=== PATIENT | female | born 2000 | race Caucasian/White ===

== ENCOUNTER → 2024-01-03 07:12 | Outpatient (CLI) | payer OTHER, SELFPAY | PROVIDERS: Referring Provider Nurse Practitioner Family; Visit Provider Nurse Practitioner Family | DX: J45.909 Unspecified asthma, uncomplicated (principal) | CPT/HCPCS: 94060 ==

== ENCOUNTER → 2025-03-31 07:08 | Outpatient (CLI) | payer OTHER, SELFPAY ==
--- NOTE | 2025-03-31 07:11 | DI.MRI.S_ITS ---
PROCEDURE: MR SHOULDER LT WO CON
--- NOTE | 2025-03-31 07:12 | DI.CT.S_ITS ---
PROCEDURE: CT SHOULDER LEFT WITHOUT CON
== END ==
PROVIDERS: PCP Nurse Practitioner Family; Referring Provider Nurse Practitioner Family
DX: S43.492A Other sprain of left shoulder joint, initial encounter (principal); M25.312 Other instability, left shoulder; M65.912 Unspecified synovitis and tenosynovitis, left shoulder
CPT/HCPCS: 73200; 73221